=== PATIENT | female | born 1990 | race Caucasian/White ===

== ENCOUNTER 2018-05-25 05:37 | Inpatient (IN) | payer OTHER, SELFPAY ==
[2018-05-25] MEDS ORDERED: Fentanyl 100 MCG/2 ML VIAL ONE ×4 (06:04→13:34)
[2018-05-25 06:10] LABS: BHCG - Serum Negative (NEGATIVE); Pregs Control Background? CLEAR/WHITE (CLR/WHITE); Pregs Control Bar Appear? YES (CONTROL BAR)
[2018-05-25] MEDS ORDERED: Adacel (T-DAP) 0.5 ML VIAL ONE (06:20)
[2018-05-25 06:23] LABS: ALT (SGPT) 255 U/L (8-55); AST (SGOT) 348 U/L (5-34); Albumin 3.9 g/dL (3.5-5.0); Alkaline Phosphatase 112 U/L (40-150); Anion Gap 14 mmol/L (10-20); BUN (Urea Nitrogen) 10 mg/dL (7.0-18.7); Bilirubin, Total 0.4 mg/dL (0.2-1.2); Calc. Creatinine Clearance 0 mL/min (70-130); Calcium 8.3 mg/dL (7.8-10.44); Carbon Dioxide 19 mmol/L (22-29); Chloride 109 mmol/L (98-107); Estimated GFR-MDRD 80; Globulin 2.8 g/dL (2.4-3.5); Glucose 186 mg/dL (70-105); Lipase 56 U/L (8-78); Protein, Total 6.7 g/dL (6.0-8.3); Sodium 137 mmol/L (136-145)
[2018-05-25] MEDS ORDERED: CEFAZOLIN/Water 2 GM/20 ML SYRINGE SLOW IVP SCH (06:30)
[2018-05-25 06:37] LABS: Band 25 % (5-11); Eosinophils 1 % (0-10); Hemoglobin 12.4 g/dL (12.0-16.0); Lymphocytes 16 % (21-51); MDiff Complete? YES; Mean Corpuscular HGB CONC 31.4 g/dL (32.0-36.0); Mean Corpuscular Hemoglobin 24.5 pg (27.0-31.0); Mean Corpuscular Volume 78.1 fL (78.0-98.0); Mean Platelet Volume 8.6 fL (7.4-10.4); Metamyelocyte 1 % (0-0); Neutrophil 57 % (42-75); PLT Morphology Comment Appears Adequate; Platelet Count 371 thou/uL (130-400); RBC Distribution Width 15.6 % (11.5-14.5); Red Blood Cell (RBC) Count 5.08 mill/uL (4.20-5.40); White Blood Cell (WBC) Count 20.3 thou/uL (4.8-10.8)
[2018-05-25] MEDS ORDERED: Ondansetron HCl/PF 4 MG/2 ML Vial ONE ×2 (07:39→14:34)
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
[2018-05-25] MEDS ORDERED: Fentanyl 250 MCG/5 ML VIAL ONE (10:13)
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
[2018-05-25 10:35] LABS: Lactic Acid 2.8 mmol/L (0.5-2.2)
[2018-05-25] MEDS ORDERED: Ondansetron HCl/PF 4 MG/2 ML Vial IVP PRN ×2 (10:59→15:26)
[2018-05-25] MEDS ORDERED: ISOVUE-370 76%-LOCM 1 ML ONE (11:30)
[2018-05-25] MEDS ORDERED: Lidocaine 1% (PF) 30 ML VIAL ONE (12:56)
[2018-05-25] MEDS ORDERED: Ketorolac Tromethamine 30 MG/ML VIAL ONE (13:19)
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
[2018-05-25] MEDS ORDERED: Succinylcholine Chloride 20 MG/ML 10 ml SYRINGE FS ONE (14:34)
[2018-05-25] MEDS ORDERED: PROPOFOL 200 MG/20 ML VIAL ONE (14:34)
[2018-05-25] MEDS ORDERED: Lidocaine 1% PF 5 ML VIAL ONE (14:34)
[2018-05-25] MEDS ORDERED: Dexamethasone 20 MG/5 ML VIAL ONE (14:34)
[2018-05-25] MEDS ORDERED: Glycopyrrolate 0.2 MG/ML 5 ML SYRINGE ONE (14:34)
[2018-05-25] MEDS ORDERED: Ketorolac Tromethamine 30 MG/ML VIAL IVP SCH ×3 (15:26→18:00)
[2018-05-25] MEDS ORDERED: Ondansetron ODT 4 MG TAB PO PRN (15:26)
[2018-05-25] MEDS ORDERED: Rib Fracture Protocol IV SCH (15:26)
[2018-05-25] MEDS ORDERED: Dextrose 50% Abboject 50 ML SYRINGE SLOW IVP PRN (15:26)
[2018-05-25] MEDS ORDERED: hydrALAZINE 20 MG/ML VIAL SLOW IVP PRN (15:26)
[2018-05-25] MEDS ORDERED: Dextrose 5% in Water 1,000 ML IV PRN (15:26)
[2018-05-25] MEDS ORDERED: Cyclobenzaprine 10 MG TAB PO PRN (15:45)
[2018-05-25] MEDS: Ibuprofen 800 MG TAB PO SCH (16:05)
--- NOTE | 2018-05-25 16:45 | RAD ---
CHEST 1 VIEW: Date: 05/25/18 HISTORY: Pneumothorax. COMPARISON: Chest radiograph from same date. FINDINGS: Right thoracostomy tube tip is in the lung apex. Minimal anterior pneumothorax. Atelectasis in both l conner bases. No left side pneumothorax is appreciated. There is a displaced left mid clavicular fracture. IMPRESSION: 1. Minimal anterior pneumothorax remaining after thoracostomy tube placement. 2. Opacities in both lungs may reflect atelectasis or contusions. POS: [facility]
[2018-05-25 16:51] VITALS: BMI 44.4
[2018-05-25] MEDS ORDERED: Acetaminophen 650 MG Suppository PR SCH (18:00)
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
[2018-05-25] MEDS: Gabapentin 300 MG CAP PO SCH ×2 (19:07→19:08)
[2018-05-25] MEDS: Acetaminophen 500 MG TAB PO SCH (19:07)
[2018-05-25] MEDS: Cyclobenzaprine 10 MG TAB PO PRN (20:39)
[2018-05-25] MEDS: Famotidine 20 MG TAB PO SCH (20:40)
[2018-05-25] MEDS: Sodium Chloride 0.9% 1,000 ML IV SCH ×2 (20:40→22:40)
[2018-05-25] MEDS: CEFAZOLIN/Water 2 GM/20 ML SYRINGE SLOW IVP SCH (21:16)
[2018-05-25] MEDS ORDERED: Acetaminophen 500 MG TAB PO SCH (23:59)
[2018-05-26] MEDS: Ibuprofen 800 MG TAB PO SCH ×4 (00:26→18:15)
[2018-05-26] MEDS: Acetaminophen 500 MG TAB PO SCH ×4 (01:32→21:29)
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
[2018-05-26 06:24] LABS: Anion Gap 10 mmol/L (10-20); BUN (Urea Nitrogen) 9 mg/dL (7.0-18.7); Calc. Creatinine Clearance 245 mL/min (70-130); Calcium 7.9 mg/dL (7.8-10.44); Carbon Dioxide 22 mmol/L (22-29); Chloride 113 mmol/L (98-107); Estimated GFR-MDRD Greater than 90; Glucose 96 mg/dL (70-105); Potassium 3.8 mmol/L (3.5-5.1); Sodium 141 mmol/L (136-145)
[2018-05-26] MEDS: CEFAZOLIN/Water 2 GM/20 ML SYRINGE SLOW IVP SCH ×3 (06:29→21:29)
[2018-05-26 06:51] LABS: Band 6 % (5-11); Hemoglobin 8.8 g/dL (12.0-16.0); Hypochromia SLIGHT = 6-15 cells (100X) (0-5/hpf); Lymphocytes 7 % (21-51); MDiff Complete? YES; Mean Corpuscular HGB CONC 31.9 g/dL (32.0-36.0); Mean Corpuscular Volume 78.4 fL (78.0-98.0); Mean Platelet Volume 8.6 fL (7.4-10.4); Monocytes 6 % (0-10); Neutrophil 81 % (42-75); PLT Morphology Comment Appears Adequate; Platelet Count 222 thou/uL (130-400); RBC Distribution Width 15.5 % (11.5-14.5); Red Blood Cell (RBC) Count 3.52 mill/uL (4.20-5.40); White Blood Cell (WBC) Count 13.9 thou/uL (4.8-10.8)
[2018-05-26] MEDS: Gabapentin 300 MG CAP PO SCH ×3 (09:34→21:29)
[2018-05-26] MEDS: Famotidine 20 MG TAB PO SCH ×2 (09:34→21:29)
[2018-05-26] MEDS: Sodium Chloride 0.9% 1,000 ML IV SCH ×2 (09:51→18:14)
--- NOTE | 2018-05-26 10:30 | RAD ---
CHEST ONE VIEW: HISTORY: A 28-year-old female. Follow up rib fracture. FINDINGS: Right-sided chest tube is in place with the tip superiorly and medially. Parenchymal changes in the right lower lobe, evidence for some atelectasis. Comminuted right scapular fracture and marginally d isplaced left clavicle fracture. Mild increased markings in the left chest. No significant pneumoth orax. IMPRESSION: Right chest tube in place with parenchymal changes in the right lower lobe, evidence for right lower lobe atelectasis or contusion. No significant pneumothorax. Displaced left clavicle fracture and co mminuted right scapular fractures. POS: [facility]
[2018-05-26] MEDS ORDERED: Lidocaine 1% PF 5 ML VIAL ONE (13:55)
[2018-05-26] MEDS ORDERED: PROPOFOL 200 MG/20 ML VIAL ONE (13:55)
[2018-05-26] MEDS ORDERED: PHENYLEPHRINE-NS 100 MCG/ML 10 ML SYRINGE ONE (13:55)
[2018-05-26] MEDS ORDERED: CEFAZOLIN/Water 2 GM/20 ML SYRINGE ONE (14:02)
[2018-05-26] MEDS ORDERED: Bacitracin Zinc Ointment 30 gm TUBE ONE (14:07)
[2018-05-26] MEDS ORDERED: Betamet Acet/Betamet Na Ph 30 MG/5 ML VIAL ONE (14:07)
[2018-05-26] MEDS ORDERED: Bupivacaine PF 0.5% 30 ML VIAL ONE (14:07)
[2018-05-26] MEDS ORDERED: Fentanyl 100 MCG/2 ML VIAL ONE ×4 (14:34→19:35)
[2018-05-26] MEDS ORDERED: Sodium Chloride 0.9% 30 ML ONE (15:28)
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
[2018-05-26] MEDS ORDERED: Promethazine HCl 25 MG/ML VIAL SLOW IVP PRN (20:07)
[2018-05-26] MEDS ORDERED: Ondansetron HCl/PF 4 MG/2 ML Vial IVP PRN (20:07)
[2018-05-26] MEDS ORDERED: Promethazine HCl 25 MG/ML VIAL IM PRN (20:07)
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
--- NOTE | 2018-05-26 20:17 | RAD ---
RIGHT ELBOW TWO VIEWS: 05/26/18 HISTORY: Intraoperative films. Nerve anchor. C-arm views show anchor placement over the olecranon region. IMPRESSION: Postoperative changes of the elbow. POS: [facility]
[2018-05-26] MEDS: Senokot S 8.6-50 MG TAB PO SCH (21:29)
[2018-05-26] MEDS ORDERED: Morphine 4 MG/ML VIAL SLOW IVP SCH (23:15)
--- NOTE | 2018-05-26 23:23 | RAD ---
PORTABLE CHEST: 05/26/18 HISTORY: Chest tube placement evaluation. COMPARISON: Earlier exam of the same day. Heart size appears borderline to slightly enlarged. Right sided chest tube remains in place. Bibasila r lung changes are fairly similar to the prior exam. Right chest tube remains unchanged in position. Overall, no interval change since the prior exam. Left clavicle fracture and right scapular fracture again demonstrated. IMPRESSION: Essentially stable exam. POS: [facility]
[2018-05-26] MEDS ORDERED: HYDROcodone/Acetaminophen 5/325 mg Tablet PO PRN (23:50)
[2018-05-26 23:52] LABS: Base Excess (BEa) -1.3 mEq/L (-2.0 to +3.0); CO2 Tension 26.7 mmHg (35.0-45.0); O2 Tension (PaO2) 61.5 mmHg (80.0-100.0); pH, Arterial 7.51 (7.35-7.45)
[2018-05-26 23:53] LABS: Hemoglobin (Hb) 8.7 g/dL (12.0-16.0)
[2018-05-26 23:54] LABS: Analyzer IN Cardio ER; Calcium, Ionized 1.1 mmol/L (1.12-1.30); Puncture Site LBA
[2018-05-26 23:55] LABS: ALV-art Gradient 160.005 (0-20)
[2018-05-26 23:55] LABS: Anion Gap 12 mmol/L (10-20); BUN (Urea Nitrogen) 8 mg/dL (7.0-18.7); Band 4 % (5-11); Calc. Creatinine Clearance 222 mL/min (70-130); Calcium 7.7 mg/dL (7.8-10.44); Carbon Dioxide 21 mmol/L (22-29); Chloride 111 mmol/L (98-107); Estimated GFR-MDRD Greater than 90; Glucose 100 mg/dL (70-105); Hemoglobin 8.6 g/dL (12.0-16.0); Lymphocytes 15 % (21-51); MDiff Complete? YES; Magnesium 1.6 mg/dL (1.6-2.6); Mean Corpuscular HGB CONC 32.7 g/dL (32.0-36.0); Mean Corpuscular Hemoglobin 25.6 pg (27.0-31.0); Mean Corpuscular Volume 78.2 fL (78.0-98.0); Mean Platelet Volume 8.1 fL (7.4-10.4); Monocytes 3 % (0-10); Myelocyte 1 % (0-0); Neutrophil 77 % (42-75); PLT Morphology Comment Appears Adequate; Platelet Count 228 thou/uL (130-400); Potassium 3.7 mmol/L (3.5-5.1); RBC Distribution Width 15.5 % (11.5-14.5); Red Blood Cell (RBC) Count 3.37 mill/uL (4.20-5.40); Sodium 140 mmol/L (136-145); White Blood Cell (WBC) Count 12.4 thou/uL (4.8-10.8)
[2018-05-26 23:58] LABS: Phosphorus 1.6 mg/dL (2.3-4.7)
[2018-05-27] MEDS ORDERED: Magnesium Sulfate 2 GM in Sodium Chloride 0.9% 100 ML IVPB SCH (00:15)
[2018-05-27] MEDS: Ibuprofen 800 MG TAB PO SCH ×4 (00:15→18:08)
[2018-05-27] MEDS: HYDROcodone/Acetaminophen 5/325 mg Tablet PO PRN ×2 (00:16→16:38)
[2018-05-27] MEDS: Sodium Chloride 0.9% 1,000 ML IV SCH ×3 (00:45→19:50)
[2018-05-27] MEDS ORDERED: Potassium Phosphate 30 MMOL, Magnesium Sulfate 2 GM in Sodium Chloride 0.9% 500 ML IVPB SCH (01:00)
[2018-05-27] MEDS ORDERED: Sodium Chloride 0.9% 500 ML IV SCH (02:45)
[2018-05-27] MEDS: Cyclobenzaprine 10 MG TAB PO PRN (03:30)
[2018-05-27 05:28] LABS: Anion Gap 11 mmol/L (10-20); BUN (Urea Nitrogen) 7 mg/dL (7.0-18.7); Calc. Creatinine Clearance 245 mL/min (70-130); Calcium 7.4 mg/dL (7.8-10.44); Carbon Dioxide 22 mmol/L (22-29); Chloride 113 mmol/L (98-107); Estimated GFR-MDRD Greater than 90; Glucose 92 mg/dL (70-105); Phosphorus 3.1 mg/dL (2.3-4.7); Potassium 3.8 mmol/L (3.5-5.1); Sodium 142 mmol/L (136-145)
[2018-05-27 05:36] LABS: #Lymphocytes 1.7 thou/uL (1.20-3.40); #Monocytes 0.6 thou/uL (0.11-0.59); #Neutrophils 9.6 thou/uL (1.40-6.50); %Basophils 0.1 % (0.0-1.0); %Eosinophils 0.3 % (0.0-10.0); %Lymphocytes 14.1 % (21.0-51.0); %Monocytes 5.2 % (0.0-10.0); %Neutrophils 80.3 % (42.0-75.0); Hemoglobin 7.9 g/dL (12.0-16.0); Mean Corpuscular HGB CONC 31.2 g/dL (32.0-36.0); Mean Corpuscular Hemoglobin 24.6 pg (27.0-31.0); Mean Corpuscular Volume 78.9 fL (78.0-98.0); Mean Platelet Volume 8.4 fL (7.4-10.4); Platelet Count 224 thou/uL (130-400); RBC Distribution Width 15.6 % (11.5-14.5)
[2018-05-27] MEDS: CEFAZOLIN/Water 2 GM/20 ML SYRINGE SLOW IVP SCH ×3 (06:19→16:30)
[2018-05-27] MEDS: Gabapentin 300 MG CAP PO SCH ×3 (09:45→20:22)
[2018-05-27] MEDS: Famotidine 20 MG TAB PO SCH ×2 (09:45→20:22)
[2018-05-27] MEDS: Senokot S 8.6-50 MG TAB PO SCH ×2 (09:45→20:22)
[2018-05-27] MEDS: Polyethylene Glycol 3350 17 GM Packet PO SCH (09:45)
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
[2018-05-27 21:02] LABS: Hemoglobin 8.2 g/dL (12.0-16.0)
[2018-05-27] MEDS ORDERED: Sodium Chloride 0.9% 500 ML IVPB SCH (21:30)
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
[2018-05-28] MEDS: CEFAZOLIN/Water 2 GM/20 ML SYRINGE SLOW IVP SCH ×3 (00:24→16:46)
[2018-05-28] MEDS: Ibuprofen 800 MG TAB PO SCH ×4 (00:24→19:02)
[2018-05-28] MEDS: HYDROcodone/Acetaminophen 5/325 mg Tablet PO PRN ×2 (00:25→22:36)
[2018-05-28] MEDS: Cyclobenzaprine 10 MG TAB PO PRN ×2 (02:38→21:14)
[2018-05-28] MEDS: Sodium Chloride 0.9% 1,000 ML IV SCH ×2 (02:53→16:05)
[2018-05-28 05:37] LABS: Anion Gap 12 mmol/L (10-20); BUN (Urea Nitrogen) 7 mg/dL (7.0-18.7); Calc. Creatinine Clearance 278 mL/min (70-130); Calcium 7.8 mg/dL (7.8-10.44); Carbon Dioxide 17 mmol/L (22-29); Chloride 111 mmol/L (98-107); Estimated GFR-MDRD Greater than 90; Glucose 77 mg/dL (70-105); Magnesium 1.9 mg/dL (1.6-2.6); Phosphorus 2.6 mg/dL (2.3-4.7); Potassium 3.7 mmol/L (3.5-5.1); Sodium 136 mmol/L (136-145)
[2018-05-28 06:53] LABS: #Eosinphils 0.3 thou/uL (0.0-0.7); #Lymphocytes 1.2 thou/uL (1.20-3.40); #Monocytes 0.2 thou/uL (0.11-0.59); #Neutrophils 6.5 thou/uL (1.40-6.50); %Basophils 0.2 % (0.0-1.0); %Monocytes 2.9 % (0.0-10.0); %Neutrophils 78.9 % (42.0-75.0); Hemoglobin 7.8 g/dL (12.0-16.0); Mean Corpuscular HGB CONC 31.8 g/dL (32.0-36.0); Mean Corpuscular Hemoglobin 24.6 pg (27.0-31.0); Mean Corpuscular Volume 77.5 fL (78.0-98.0); Mean Platelet Volume 9.1 fL (7.4-10.4); Platelet Count 232 thou/uL (130-400); RBC Distribution Width 15.4 % (11.5-14.5); Red Blood Cell (RBC) Count 3.15 mill/uL (4.20-5.40); White Blood Cell (WBC) Count 12.3 thou/uL (4.8-10.8)
--- NOTE | 2018-05-28 07:04 | PRG ---
DATE OF SERVICE: 05/28/2018 I saw Ms. Varghese in her hospital room this morning. Her chest tube is in, but on water seal. There a re splints on both upper extremities and the scapular fracture will be allowed to heal on its own. Ms. Varghese is wearing her cervical collar and although there is some discomfort, the collar and strict immobilization seems to keep it away. Overnight, her vitals have been stable. Her T-max is 99.5 de grees Fahrenheit. Her blood pressures have been normal. I do not find any neurological deficits. Our plan is still the same. When the chest tube is out and other orthopedic injuries have had their final treatments will get an MRI scan of the craniocervical junction. We will decide after scanning whether halo placement would be better for her than collar immobilization, but she will need at least 2 months of craniocervical immobilization in an attempt to get her occipital condyle avulsion fractu re healed without surgical intervention.
[2018-05-28] MEDS ORDERED: MAGNESIUM SULFATE IVPB SCH (08:30)
[2018-05-28] MEDS ORDERED: POTASSIUM PHOSPHATE IVPB SCH (08:30)
[2018-05-28] MEDS ORDERED: [UNRECOGNIZED DRUG - OTHER] IVPB SCH (08:30)
--- NOTE | 2018-05-28 08:33 | RAD ---
CHEST 1 VIEW: Date: 05/28/18 HISTORY: 28-year-old female with history of follow-up pneumothorax with right chest tube. FINDINGS: There is a right chest tube in place. Small right-sided pneumothorax. Patchy bilateral parenchymal ch anges, including the left mid and lower lung zone and right base. Displaced left clavicle fracture an d comminuted right scapular fractures. IMPRESSION: Right chest tube in place with small right-sided lateral pneumothorax, new \ more prominent. Parenchy mal changes in the left upper lobe, which appear to be somewhat more prominent than on the 05/26/18 s tudy suggesting some developing pneumonitis or subsegmental atelectasis. Bibasilar pulmonary and pare nchymal changes appear overall stable. Continue short-term follow-up for clearing or stability. POS: [facility]
[2018-05-28] MEDS: Famotidine 20 MG TAB PO SCH ×2 (08:38→21:16)
[2018-05-28] MEDS: Gabapentin 300 MG CAP PO SCH ×3 (08:39→21:15)
[2018-05-28] MEDS: Ascorbic Acid 500 mg Chewable Tablet PO SCH ×2 (08:39→21:17)
[2018-05-28] MEDS: Enoxaparin Sodium 40 MG/0.4 ML SYRINGE SC SCH (08:39)
[2018-05-28] MEDS: Ferrous Sulfate 325 MG TAB PO SCH ×2 (08:39→16:46)
[2018-05-28] MEDS: Senokot S 8.6-50 MG TAB PO SCH ×2 (08:39→21:16)
[2018-05-28] MEDS: Polyethylene Glycol 3350 17 GM Packet PO SCH (08:40)
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
--- NOTE | 2018-05-28 13:54 | OP ---
DATE OF SURGERY: 05/26/2018 PREOPERATIVE DIAGNOSES: 1. Wound, 8 cm medial forearm. 2. Ulnar nerve laceration with gap 2 cm, despite neuroplasty. 3. Capsular tear: A. The medial 50%, medial and anteromedial. B. Open elbow joint with visible partial olecranon coronoid junction comminuted fracture. C. Olecranon anteromedial coronoid fracture. D. Triceps from avulsion 50% off the bone and olecranon. E. Flexor carpi radialis ulnaris, flexor digitorium superficialis rupture. F. Ulnar collateral ligament rupture. G. Instability of elbow. PROCEDURES PERFORMED: 1. C-arm supervision. 2. Right elbow capsular repair medial and anteromedial. 3. Flexor digitorum superficialis. 4. Wound debridement. 5. Wound closure 8 cm. 6. Debridement of open elbow joint. 7. Flexor carpi ulnaris repair. 8. Right triceps reconstruction. 9. Right ulnar collateral ligament repair. 10. Ulnar nerve transposition/neuroplasty. 11. Right ulnar nerve microscopic technique, sural nerve grafting x5 fascicles, each one approximate ly 2 cm. 12. Application of the Integra nerve conduit sleeve 7 mm x 4 cm. INDICATION: The patient returns to operating room because of the elbow damage seen with first debrid ement approximately 36 hours prior to this. She was afebrile in the intensive care unit. She did no t have a pulse deficit. The patient had the limb prepped and draped. Time out was done appropriately. The incision was exte nded 6 cm proximal and 3 cm distal to expose the tight area and underwent an immediate neuroplasty in median nerve and ulnar nerve and we could see even with the elbow at full extension to -30 from full extension, the injury did not touch bone, were approximately 1 cm away from each other, so, we debri ded under microscope, the damaged area approximately 4 mm on the proximal side and two on the distal leaving us with a gap of approximately 1.5 cm cystic duct, which went to 2 cm with full flexion. Jackelyn s 2 cm intrafascicular nerve graft to be needed with the five fascicles visualized. We then immediately went into debridement. First the joint was irrigated, debrided using especially bone on the olecranon's medial edge with a curette, tenotomy scissors, [place] blade, and irrigation. The technique was excisional and there was an occluded bone. There was no gross contamination or inf ection seen. The same four steps were used for all of the debridements except now, once the bone was done in the joint, remained of all soft tissue. There was no gross infection. Minimal contaminatio n seen except for one particle was easily removed subcutaneously. We then visualized the triceps, one medial portion was torn, the anterior oblique portion, medial col lateral ligament and the posterior medial collateral ligament was intact, but torn and mid with underlying capsule torn up to level of the coracoid. There was still some capsule on the superior a nd most anterior corner of the coracoid. Capsule still attached to both the humerus and the olecranon. After we finished the debridement desc ribed above, the first step was repair of the capsule with the elbow reduced using an interrupted Pro dwayne, 3-0 suture this is [id number]. Next, repaired the ulnar collateral ligament both aspects using a Lisa type suture with a #1 Ethibond on OS-4 needle, which gave excellent field and was ove r reduced with the elbow in varus approximately 15 degrees. There was no instability after this poin t. We continued our repair using one anchor to help hold the capsule in place. Then, we made a trou gh for the triceps in parallel to the 50% that was still in place and use two anchors one at G2 and o ne at Mitek mini to place the tendon back in a trough and this was done with a Lisa-type weave tie d onto itself. This gave excellent stability with elbow and full range of motion 0-140 degrees passi vely. We then repaired the fascia back to fascia, where the flexor digitorum profundus, superficialis, flex or carpal radialis, flexor carpi ulnaris were all lacerated. We then noticed that the distal nerve c ut and one of the nerve branches to the flexor carpi radialis and was still intact. But now, we turn ed our attention from the stability repairs and debridement to the ulnar nerve. We went microscope a gain measured the nerve gap, and decided we would need either 4 or 5 fascicles, so each one will be a pproximately 2.5 cm, so we would need a 12-14 mm nerve graft. The tourniquet was deflated here, bulk y dressing was applied to protect the area and we turn attention to the leg. The leg was now prepped and draped with a thigh, tourniquet in place just above the knee. It was well padded. The limb was exsanguinated with a tourniquet nonsterile limb, and the pressure applied at 300 mmHg pressure. I identified the base of the fifth metatarsal with one fingerbreadth over dorsally and then made a zi gzag incision identified, the sural nerve adjusted that began to make branches. This wound was now 2 .5 cm followed that back. With the use of tunneling techniques to the level of the lateral malleolus , we will follow the back and found the nerve and then using a skipped of 2 cm area and another 1.5 c m incision to visualize the sural nerve. We from the vasculature, isolated, and released i t distally, slowly dissected back proximally until we had reached the point of maximum visualization. I made a cut here with tenotomy scissors, now had a nerve be removed off gently out of the nerve pl aced a moist sponge. Then, we did release the tourniquet. We closed these wounds with interrupted r unning 4-0 Monocryl, then closed the skin with Steri-Strips and Mastisol. Bulky dressing was applied including dry Adaptic, 4 x 4s, Kerlix, and 2 Hima wraps. We turned our attention now to the remainin g area. Under microscope we identified five fascicles on either side, use the vasculature to align t hem and the fact that one of the cuts was nerve fascicles, was a 5 mm long than the other fascicles o n the distal end and of course one fascicles was 5 mm to 6 mm shorter of the other gave us alignment. We then used 9-0 Nurolon for closure of all, but one fascicle which using 8-0. Once this was done, we had excellent tension of the nerve when the elbow was fully extended and flexed to 130 degrees. There was no migration that we had placed into the subcutaneous transposition and neuroplasty positio n. All sutures were cut. We then placed an Integra nerve conduit sleeve, which was [address] wi th 3 Prolene sutures to hold it in place, where it covered the graft site as well as the anastomosis site. Tourniquet was now highly deflated and hemostasis was complete. We placed a drain, small Hemovac wit h 10 holes inside the wound and not showing outside the skin, close subcutaneous tissue with interrup nereida 4-0 Monocryl, and then reapproximated the epidermis with 3-0 nylon interrupted mattress pattern. Bulky dressing was applied along the splint in a -4 to 5 degrees of flexion. We will evaluate the p atient in clinic in 3-4 days.
[2018-05-29] MEDS: CEFAZOLIN/Water 2 GM/20 ML SYRINGE SLOW IVP SCH ×4 (00:19→23:36)
[2018-05-29] MEDS: Ibuprofen 800 MG TAB PO SCH ×5 (00:19→23:36)
[2018-05-29] MEDS ORDERED: Melatonin 3 MG TAB PO PRN (01:39)
[2018-05-29] MEDS: HYDROcodone/Acetaminophen 5/325 mg Tablet PO PRN ×3 (05:53→14:57)
--- NOTE | 2018-05-29 07:18 | PRG ---
DATE OF SERVICE: 05/29/2018 I saw Ms. Lyndsey Varghese in her hospital room this morning. Yesterday, she had her chest tube remov ed, that makes her feel a bit better. She continues to have pain from orthopedic injuries in the ext remities. She continues to deny any neck pain at all. There is no pain at the base of her skull. W ith the collar she has her neck completely mobilized and she is doing her best not to move it. On examination, I do not find any new neurological deficits. There is some ulnar nerve deficits in t he right hand as expected. A fine cut MRI scan dedicated to the craniocervical junction to determine whether other ligamentous s tructures connecting the occiput to C1 and C2 have been stretched, torn or injured. If there is a un ilateral ____ or ligament, tiny avulsion and the bone is still in continuity with the skull as it is at one end of the bone fragment, then I am optimistic that a rigid external orthosis without halo ves t could allow for healing. If other ligaments are involved then a halo vest application may be neces navin this week.
[2018-05-29] MEDS: Senokot 8.6 MG TAB PO SCH (08:03)
[2018-05-29] MEDS: Ferrous Sulfate 325 MG TAB PO SCH ×2 (08:44→17:22)
[2018-05-29] MEDS: Enoxaparin Sodium 40 MG/0.4 ML SYRINGE SC SCH (08:44)
[2018-05-29] MEDS: Senokot S 8.6-50 MG TAB PO SCH ×2 (08:44→21:03)
[2018-05-29] MEDS: Famotidine 20 MG TAB PO SCH ×2 (08:44→21:03)
[2018-05-29] MEDS: Gabapentin 300 MG CAP PO SCH ×3 (08:44→21:03)
[2018-05-29] MEDS: Docusate 100 MG CAP PO SCH (08:45)
[2018-05-29] MEDS: Ascorbic Acid 500 mg Chewable Tablet PO SCH ×2 (08:45→21:03)
[2018-05-29] MEDS: Polyethylene Glycol 3350 17 GM Packet PO SCH (08:45)
--- NOTE | 2018-05-29 09:55 | RAD ---
CHEST ONE VIEW: HISTORY: Status post chest tube removal. COMPARISON: 05/28/2018 FINDINGS: Previously noted right-sided pneumothorax is not appreciated. Interval removal of right-sided chest tube. Persistent opacification in the lung parenchyma with focal opacity in the right lower lobe and left perihilar region. Left clavicle fracture is once again demonstrated. IMPRESSION: Interval removal of right-sided chest tube. No evidence of right-sided pneumothorax. POS: VEDA
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
[2018-05-29] MEDS ORDERED: Lorazepam 2 MG/ML VIAL SLOW IVP SCH (12:15)
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
[2018-05-29] MEDS ORDERED: traMADol HCl 50 MG TAB PO PRN (16:20)
[2018-05-29] MEDS ORDERED: Potassium Chloride 20 MEQ TAB PO SCH (16:30)
[2018-05-29] MEDS ORDERED: Magnesium Sulfate 3 GM in Sodium Chloride 0.9% 100 ML IVPB SCH (16:30)
[2018-05-29] MEDS ORDERED: traMADol HCl 50 MG TAB PO SCH (16:30)
[2018-05-29] MEDS ORDERED: Acetaminophen 500 MG TAB PO SCH (16:30)
[2018-05-29] MEDS ORDERED: Triple Antibiotic Oint 1 GM Packet TOP SCH (17:30)
[2018-05-29] MEDS ORDERED: HYDROcodone/Acetaminophen 5/325 mg Tablet PO PRN (17:34)
[2018-05-29] MEDS ORDERED: Acetaminophen 325 MG TAB PO SCH (17:45)
[2018-05-29] MEDS ORDERED: HYDROcodone/Acetaminophen 5/325 mg Tablet PO SCH (17:45)
[2018-05-29] MEDS: Cyclobenzaprine 10 MG TAB PO PRN (21:03)
[2018-05-29] MEDS: HYDROcodone/Acetaminophen 5/325 mg Tablet PO SCH (21:23)
[2018-05-30 04:50] LABS: #Eosinphils 0.4 thou/uL (0.0-0.7); #Lymphocytes 1.7 thou/uL (1.20-3.40); #Monocytes 0.6 thou/uL (0.11-0.59); #Neutrophils 5.2 thou/uL (1.40-6.50); %Basophils 0.6 % (0.0-1.0); %Eosinophils 4.8 % (0.0-10.0); %Lymphocytes 21.5 % (21.0-51.0); %Neutrophils 66.1 % (42.0-75.0); Hemoglobin 8.4 g/dL (12.0-16.0); Mean Corpuscular HGB CONC 33.2 g/dL (32.0-36.0); Mean Corpuscular Hemoglobin 25.6 pg (27.0-31.0); Mean Corpuscular Volume 77.1 fL (78.0-98.0); Platelet Count 256 thou/uL (130-400); RBC Distribution Width 15.5 % (11.5-14.5); White Blood Cell (WBC) Count 7.8 thou/uL (4.8-10.8)
[2018-05-30 05:00] LABS: Anion Gap 15 mmol/L (10-20); BUN (Urea Nitrogen) 11 mg/dL (7.0-18.7); Calc. Creatinine Clearance 278 mL/min (70-130); Calcium 8.4 mg/dL (7.8-10.44); Carbon Dioxide 14 mmol/L (22-29); Chloride 111 mmol/L (98-107); Estimated GFR-MDRD Greater than 90; Glucose 79 mg/dL (70-105); Magnesium 1.9 mg/dL (1.6-2.6); Phosphorus 3.8 mg/dL (2.3-4.7); Potassium 4.2 mmol/L (3.5-5.1); Sodium 136 mmol/L (136-145)
[2018-05-30] MEDS: HYDROcodone/Acetaminophen 5/325 mg Tablet PO SCH ×4 (05:07→20:38)
[2018-05-30] MEDS: Ibuprofen 800 MG TAB PO SCH ×3 (05:07→18:39)
--- NOTE | 2018-05-30 08:50 | PRG ---
DATE OF SERVICE: 05/30/2018 I reviewed the MRI involving the craniocervical junction on Lyndsey Varghese. It demonstrates a small amount of edema in the right medial occipital portion of the condyle consistent with a condylar frac ture. There is no diastasis of the atlanto-occipital nor of the atlantoaxial joints. I would recomm end a cervical collar for this patient with a follow up in a couple of weeks with a cervical AP, late ral and open mouth odontoid spine x-rays. The collar should be worn at all times, likely for duratio n of 3 months.
[2018-05-30] MEDS: Ferrous Sulfate 325 MG TAB PO SCH ×2 (08:56→16:18)
[2018-05-30] MEDS: Triple Antibiotic Oint 1 GM Packet TOP SCH (08:56)
[2018-05-30] MEDS: Gabapentin 300 MG CAP PO SCH ×3 (08:56→20:39)
[2018-05-30] MEDS: Famotidine 20 MG TAB PO SCH ×2 (08:56→20:39)
[2018-05-30] MEDS: CEFAZOLIN/Water 2 GM/20 ML SYRINGE SLOW IVP SCH ×2 (08:56→16:18)
[2018-05-30] MEDS: Ascorbic Acid 500 mg Chewable Tablet PO SCH ×2 (08:56→20:39)
[2018-05-30] MEDS: Enoxaparin Sodium 40 MG/0.4 ML SYRINGE SC SCH (08:56)
[2018-05-30] MEDS: Docusate 100 MG CAP PO SCH (09:03)
[2018-05-30] MEDS: Senokot S 8.6-50 MG TAB PO SCH ×2 (09:04→20:39)
[2018-05-30] MEDS: Senokot 8.6 MG TAB PO SCH (09:04)
[2018-05-30] MEDS: Polyethylene Glycol 3350 17 GM Packet PO SCH (09:04)
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
[2018-05-31] MEDS: Ibuprofen 800 MG TAB PO SCH ×4 (01:41→17:38)
[2018-05-31] MEDS: CEFAZOLIN/Water 2 GM/20 ML SYRINGE SLOW IVP SCH ×3 (01:41→16:44)
[2018-05-31] MEDS: HYDROcodone/Acetaminophen 5/325 mg Tablet PO SCH ×4 (03:31→22:38)
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
[2018-05-31] MEDS: Famotidine 20 MG TAB PO SCH ×2 (08:52→20:33)
[2018-05-31] MEDS: Gabapentin 300 MG CAP PO SCH ×3 (08:52→20:33)
[2018-05-31] MEDS: Ferrous Sulfate 325 MG TAB PO SCH ×2 (08:52→17:38)
[2018-05-31] MEDS: Triple Antibiotic Oint 1 GM Packet TOP SCH (08:52)
[2018-05-31] MEDS: Enoxaparin Sodium 40 MG/0.4 ML SYRINGE SC SCH (08:53)
[2018-05-31] MEDS: Ascorbic Acid 500 mg Chewable Tablet PO SCH ×2 (08:56→20:33)
[2018-05-31] MEDS: Senokot 8.6 MG TAB PO SCH (08:57)
[2018-05-31] MEDS: Polyethylene Glycol 3350 17 GM Packet PO SCH (08:57)
[2018-05-31] MEDS: Docusate 100 MG CAP PO SCH (08:57)
[2018-05-31] MEDS: Senokot S 8.6-50 MG TAB PO SCH ×2 (08:57→20:33)
[2018-05-31] MEDS: Cyclobenzaprine 10 MG TAB PO PRN (11:19)
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
[2018-05-31] MEDS: HYDROcodone/Acetaminophen 5/325 mg Tablet PO PRN (13:06)
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
[2018-06-01] MEDS: Ibuprofen 800 MG TAB PO SCH ×4 (00:36→18:18)
[2018-06-01] MEDS: CEFAZOLIN/Water 2 GM/20 ML SYRINGE SLOW IVP SCH ×2 (00:37→11:40)
[2018-06-01] MEDS: HYDROcodone/Acetaminophen 5/325 mg Tablet PO SCH ×4 (04:17→21:51)
[2018-06-01] MEDS: Senokot 8.6 MG TAB PO SCH (09:59)
[2018-06-01] MEDS: Docusate 100 MG CAP PO SCH (10:00)
[2018-06-01] MEDS: Gabapentin 300 MG CAP PO SCH ×3 (10:00→20:51)
[2018-06-01] MEDS: Triple Antibiotic Oint 1 GM Packet TOP SCH (10:01)
[2018-06-01] MEDS: Ferrous Sulfate 325 MG TAB PO SCH ×2 (10:02→18:18)
[2018-06-01] MEDS: Ascorbic Acid 500 mg Chewable Tablet PO SCH ×2 (10:02→20:51)
[2018-06-01] MEDS: Senokot S 8.6-50 MG TAB PO SCH ×2 (10:02→20:51)
[2018-06-01] MEDS: Enoxaparin Sodium 40 MG/0.4 ML SYRINGE SC SCH (10:02)
[2018-06-01] MEDS: Polyethylene Glycol 3350 17 GM Packet PO SCH (10:07)
[2018-06-01] MEDS: Famotidine 20 MG TAB PO SCH ×2 (10:08→20:51)
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
[2018-06-02] MEDS: Ibuprofen 800 MG TAB PO SCH ×5 (00:34→23:28)
[2018-06-02] MEDS: HYDROcodone/Acetaminophen 5/325 mg Tablet PO SCH ×4 (04:27→22:05)
[2018-06-02] MEDS: Ascorbic Acid 500 mg Chewable Tablet PO SCH ×2 (10:13→20:46)
[2018-06-02] MEDS: Gabapentin 300 MG CAP PO SCH ×3 (10:13→20:46)
[2018-06-02] MEDS: Triple Antibiotic Oint 1 GM Packet TOP SCH (10:13)
[2018-06-02] MEDS: Enoxaparin Sodium 40 MG/0.4 ML SYRINGE SC SCH (10:14)
[2018-06-02] MEDS: Famotidine 20 MG TAB PO SCH ×2 (10:14→20:46)
[2018-06-02] MEDS: Senokot 8.6 MG TAB PO SCH (10:14)
[2018-06-02] MEDS: Docusate 100 MG CAP PO SCH (10:14)
[2018-06-02] MEDS: Ferrous Sulfate 325 MG TAB PO SCH ×2 (10:14→17:04)
[2018-06-02] MEDS: Polyethylene Glycol 3350 17 GM Packet PO SCH (10:15)
[2018-06-02] MEDS: Senokot S 8.6-50 MG TAB PO SCH ×2 (10:15→20:47)
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
[2018-06-03] MEDS: Ibuprofen 800 MG TAB PO SCH ×4 (05:26→23:30)
[2018-06-03] MEDS: HYDROcodone/Acetaminophen 5/325 mg Tablet PO SCH ×4 (05:26→21:50)
[2018-06-03] MEDS: Polyethylene Glycol 3350 17 GM Packet PO SCH (07:39)
[2018-06-03] MEDS: Famotidine 20 MG TAB PO SCH ×2 (07:39→20:27)
[2018-06-03] MEDS: Senokot 8.6 MG TAB PO SCH (07:39)
[2018-06-03] MEDS: Docusate 100 MG CAP PO SCH (07:40)
[2018-06-03] MEDS: Senokot S 8.6-50 MG TAB PO SCH ×2 (07:40→20:27)
[2018-06-03] MEDS: Ascorbic Acid 500 mg Chewable Tablet PO SCH ×2 (07:40→20:26)
[2018-06-03] MEDS: Gabapentin 300 MG CAP PO SCH ×3 (07:40→20:27)
[2018-06-03] MEDS: Ferrous Sulfate 325 MG TAB PO SCH ×2 (07:40→18:12)
[2018-06-03] MEDS: Enoxaparin Sodium 40 MG/0.4 ML SYRINGE SC SCH (07:40)
[2018-06-03] MEDS: Triple Antibiotic Oint 1 GM Packet TOP SCH (07:41)
[2018-06-03] MEDS: Cyclobenzaprine 10 MG TAB PO PRN (08:42)
[2018-06-03] MEDS: HYDROcodone/Acetaminophen 5/325 mg Tablet PO PRN (08:43)
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
[2018-06-03] MEDS: Scopolamine 1.5 mg/72 hour Patch TD SCH (12:21)
[2018-06-04] MEDS: HYDROcodone/Acetaminophen 5/325 mg Tablet PO SCH ×4 (04:54→21:58)
[2018-06-04] MEDS: Ibuprofen 800 MG TAB PO SCH ×4 (05:00→23:49)
[2018-06-04] MEDS: Polyethylene Glycol 3350 17 GM Packet PO SCH (09:52)
[2018-06-04] MEDS: Docusate 100 MG CAP PO SCH (09:52)
[2018-06-04] MEDS: Ferrous Sulfate 325 MG TAB PO SCH ×2 (09:52→17:51)
[2018-06-04] MEDS: Famotidine 20 MG TAB PO SCH ×2 (09:53→20:54)
[2018-06-04] MEDS: Enoxaparin Sodium 40 MG/0.4 ML SYRINGE SC SCH (09:53)
[2018-06-04] MEDS: Gabapentin 300 MG CAP PO SCH ×3 (09:53→20:54)
[2018-06-04] MEDS: Ascorbic Acid 500 mg Chewable Tablet PO SCH ×2 (09:53→20:54)
[2018-06-04] MEDS: Senokot S 8.6-50 MG TAB PO SCH ×2 (09:53→20:54)
[2018-06-04] MEDS: Triple Antibiotic Oint 1 GM Packet TOP SCH (09:54)
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
[2018-06-05] MEDS: HYDROcodone/Acetaminophen 5/325 mg Tablet PO SCH ×4 (04:20→22:32)
[2018-06-05] MEDS: Ibuprofen 800 MG TAB PO SCH ×3 (05:47→18:34)
[2018-06-05] MEDS ORDERED: Bisacodyl 10 MG SUPP PR PRN (08:12)
[2018-06-05] MEDS: Famotidine 20 MG TAB PO SCH ×2 (09:53→21:05)
[2018-06-05] MEDS: Docusate 100 MG CAP PO SCH (09:53)
[2018-06-05] MEDS: Ascorbic Acid 500 mg Chewable Tablet PO SCH ×2 (09:54→21:05)
[2018-06-05] MEDS: Enoxaparin Sodium 40 MG/0.4 ML SYRINGE SC SCH (09:54)
[2018-06-05] MEDS: Senokot S 8.6-50 MG TAB PO SCH ×2 (09:54→21:05)
[2018-06-05] MEDS: Ferrous Sulfate 325 MG TAB PO SCH ×2 (09:54→16:47)
[2018-06-05] MEDS: Gabapentin 300 MG CAP PO SCH ×3 (09:54→21:05)
[2018-06-05] MEDS: Polyethylene Glycol 3350 17 GM Packet PO SCH (09:54)
[2018-06-05] MEDS: Triple Antibiotic Oint 1 GM Packet TOP SCH (10:00)
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
[2018-06-06] MEDS: Ibuprofen 800 MG TAB PO SCH ×4 (00:17→16:06)
[2018-06-06] MEDS: HYDROcodone/Acetaminophen 5/325 mg Tablet PO SCH ×4 (04:35→21:53)
[2018-06-06] MEDS: Enoxaparin Sodium 40 MG/0.4 ML SYRINGE SC SCH (08:41)
[2018-06-06] MEDS: Ascorbic Acid 500 mg Chewable Tablet PO SCH ×2 (08:41→21:53)
[2018-06-06] MEDS: Docusate 100 MG CAP PO SCH (08:41)
[2018-06-06] MEDS: Famotidine 20 MG TAB PO SCH ×2 (08:41→21:53)
[2018-06-06] MEDS: Ferrous Sulfate 325 MG TAB PO SCH ×2 (08:41→16:06)
[2018-06-06] MEDS: Gabapentin 300 MG CAP PO SCH ×3 (08:41→21:53)
[2018-06-06] MEDS: Senokot S 8.6-50 MG TAB PO SCH ×2 (08:41→21:53)
[2018-06-06] MEDS: Polyethylene Glycol 3350 17 GM Packet PO SCH (08:43)
[2018-06-06] MEDS: Triple Antibiotic Oint 1 GM Packet TOP SCH (08:43)
[2018-06-06] MEDS: Scopolamine 1.5 mg/72 hour Patch TD SCH (13:23)
[2018-06-07] MEDS: Ibuprofen 800 MG TAB PO SCH ×5 (00:12→22:44)
[2018-06-07] MEDS: HYDROcodone/Acetaminophen 5/325 mg Tablet PO SCH ×4 (03:56→22:16)
[2018-06-07 04:30] LABS: #Basophils 0.1 thou/uL (0.0-0.2); #Eosinphils 0.2 thou/uL (0.0-0.7); #Lymphocytes 2.2 thou/uL (1.20-3.40); #Monocytes 0.5 thou/uL (0.11-0.59); #Neutrophils 6.3 thou/uL (1.40-6.50); %Basophils 0.8 % (0.0-1.0); %Eosinophils 2.3 % (0.0-10.0); %Lymphocytes 23.7 % (21.0-51.0); %Monocytes 5.2 % (0.0-10.0); Hemoglobin 9.2 g/dL (12.0-16.0); Mean Corpuscular Hemoglobin 25.7 pg (27.0-31.0); Mean Corpuscular Volume 80.4 fL (78.0-98.0); Platelet Count 411 thou/uL (130-400); RBC Distribution Width 17.4 % (11.5-14.5); Red Blood Cell (RBC) Count 3.57 mill/uL (4.20-5.40); White Blood Cell (WBC) Count 9.2 thou/uL (4.8-10.8)
[2018-06-07 04:56] LABS: Anion Gap 14 mmol/L (10-20); BUN (Urea Nitrogen) 18 mg/dL (7.0-18.7); Calc. Creatinine Clearance 233 mL/min (70-130); Calcium 9.1 mg/dL (7.8-10.44); Carbon Dioxide 23 mmol/L (22-29); Chloride 110 mmol/L (98-107); Estimated GFR-MDRD Greater than 90; Glucose 107 mg/dL (70-105); Magnesium 2.1 mg/dL (1.6-2.6); Phosphorus 5.4 mg/dL (2.3-4.7); Potassium 3.7 mmol/L (3.5-5.1); Sodium 143 mmol/L (136-145)
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
[2018-06-07] MEDS: Polyethylene Glycol 3350 17 GM Packet PO SCH (08:51)
[2018-06-07] MEDS: Senokot S 8.6-50 MG TAB PO SCH ×2 (08:52→22:00)
[2018-06-07] MEDS: Enoxaparin Sodium 40 MG/0.4 ML SYRINGE SC SCH (08:52)
[2018-06-07] MEDS: Famotidine 20 MG TAB PO SCH ×2 (08:52→20:43)
[2018-06-07] MEDS: Docusate 100 MG CAP PO SCH (08:52)
[2018-06-07] MEDS: Ferrous Sulfate 325 MG TAB PO SCH ×2 (08:52→18:15)
[2018-06-07] MEDS: Gabapentin 300 MG CAP PO SCH ×3 (08:52→20:44)
[2018-06-07] MEDS: Ascorbic Acid 500 mg Chewable Tablet PO SCH ×2 (08:53→20:44)
[2018-06-07] MEDS: Triple Antibiotic Oint 1 GM Packet TOP SCH (08:53)
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
[2018-06-07] MEDS: HYDROcodone/Acetaminophen 5/325 mg Tablet PO PRN (14:33)
[2018-06-08] MEDS: Ibuprofen 800 MG TAB PO SCH ×2 (05:05→14:10)
[2018-06-08] MEDS: HYDROcodone/Acetaminophen 5/325 mg Tablet PO SCH (05:05)
[2018-06-08] MEDS ORDERED: HYDROcodone/Acetaminophen 5/325 mg Tablet PO PRN (06:40)
[2018-06-08 08:22] VITALS: TEMP 98.1
[2018-06-08] MEDS: Polyethylene Glycol 3350 17 GM Packet PO SCH (09:46)
[2018-06-08] MEDS: Ascorbic Acid 500 mg Chewable Tablet PO SCH (09:47)
[2018-06-08] MEDS: Senokot S 8.6-50 MG TAB PO SCH (09:47)
[2018-06-08] MEDS: Ferrous Sulfate 325 MG TAB PO SCH (09:47)
[2018-06-08] MEDS: Famotidine 20 MG TAB PO SCH (09:48)
[2018-06-08] MEDS: Docusate 100 MG CAP PO SCH (09:49)
[2018-06-08] MEDS: Gabapentin 300 MG CAP PO SCH ×2 (09:49→14:11)
[2018-06-08] MEDS: Triple Antibiotic Oint 1 GM Packet TOP SCH (09:49)
[2018-06-08] MEDS ORDERED: HYDROcodone/Acetaminophen 5/325 mg Tablet PO SCH (10:00)
[2018-06-08] MEDS: Enoxaparin Sodium 40 MG/0.4 ML SYRINGE SC SCH (10:14)
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
[2018-06-08 12:03] VITALS: BP 110/69
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
== END 2018-06-08 15:00 | DRG 958 ==
LOC: ERS 05:37 → EEVIPCON 05:37 → ERS 08:46 → SDC 08:52 → SURG B 15:12 → SURG A 06-01 16:01 → SURG B 06-01 16:01 → SURG A 06-01 16:03 → SURG B 06-01 16:06
PROVIDERS: ADMIT Specialist; ATTEND Orthopaedic Surgery
PROC: 0W9900Z Drainage of Right Pleural Cavity with Drainage Device, Open Approach (ICD-10-PCS; 2018-05-25)
PROC: 0JBG0ZZ Excision of Right Lower Arm Subcutaneous Tissue and Fascia, Open Approach (ICD-10-PCS; 2018-05-25)
PROC: 0RCL0ZZ Extirpation of Matter from Right Elbow Joint, Open Approach (ICD-10-PCS; 2018-05-25)
PROC: 0PSQXZZ Reposition Left Metacarpal, External Approach (ICD-10-PCS; 2018-05-25)
PROC: 0PSVXZZ Reposition Left Finger Phalanx, External Approach (ICD-10-PCS; 2018-05-25)
PROC: 0RQL0ZZ Repair Right Elbow Joint, Open Approach (ICD-10-PCS; principal; 2018-05-26)
PROC: 0PBK0ZZ Excision of Right Ulna, Open Approach (ICD-10-PCS; 2018-05-26)
PROC: 0RBL0ZZ Excision of Right Elbow Joint, Open Approach (ICD-10-PCS; 2018-05-26)
PROC: 0MQ30ZZ Repair Right Elbow Bursa and Ligament, Open Approach (ICD-10-PCS; 2018-05-26)
PROC: 01Q40ZZ Repair Ulnar Nerve, Open Approach (ICD-10-PCS; 2018-05-26)
PROC: 01U40JZ Supplement Ulnar Nerve with Synthetic Substitute, Open Approach (ICD-10-PCS; 2018-05-26)
PROC: 0HRDXK3 Replacement of Right Lower Arm Skin with Nonautologous Tissue Substitute, Full Thickness, External Approach (ICD-10-PCS; 2018-05-26)
DX: S54.01XA Injury of ulnar nerve at forearm level, right arm, initial encounter (principal); S32.511A Fracture of superior rim of right pubis, initial encounter for closed fracture; S22.41XA Multiple fractures of ribs, right side, initial encounter for closed fracture; S27.0XXA Traumatic pneumothorax, initial encounter; D62 Acute posthemorrhagic anemia; V89.2XXA Person injured in unspecified motor-vehicle accident, traffic, initial encounter; Y92.9 Unspecified place or not applicable; R40.2412 Glasgow coma scale score 13-15, at arrival to emergency department; S42.101A Fracture of unspecified part of scapula, right shoulder, initial encounter for closed fracture; S60.212A Contusion of left wrist, initial encounter; S52.021A Displaced fracture of olecranon process without intraarticular extension of right ulna, initial encounter for closed fracture; S51.801A Unspecified open wound of right forearm, initial encounter; S53.401A Unspecified sprain of right elbow, initial encounter; S42.002A Fracture of unspecified part of left clavicle, initial encounter for closed fracture; S62.305A Unspecified fracture of fourth metacarpal bone, left hand, initial encounter for closed fracture; S62.617A Displaced fracture of proximal phalanx of left little finger, initial encounter for closed fracture; E87.5 Hyperkalemia; E83.39 Other disorders of phosphorus metabolism; E83.42 Hypomagnesemia
CPT/HCPCS: 36415; 70450; 70551; 71045; 71260; 72125; 72170; 74177; 76000; 80048; 80053; 82805; 83605; 83690; 83735; 84100; 84703; 85025; 90471; 90715; 94640; 96361; 96374; 96375; A4216; C1713; G0390; G8978-GP-CL; G8979-GP-CJ; G8987-GO-CK; G8988-GO-CJ; J0702; J1100; J1650; J1885; J2001; J2060; J2270; J2405; J2704; J3010; J3475; J3490; J7050; J7620; L1930; S0020

== ENCOUNTER 2018-06-21 09:51 | Outpatient (CLI) | payer OTHER, SELFPAY ==
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
== END 2018-06-21 09:52 | disposition home or self-care (01) ==
LOC: RAD 09:51
PROVIDERS: ATTEND Physician Assistant
DX: S22.31XD Fracture of one rib, right side, subsequent encounter for fracture with routine healing (principal); J93.9 Pneumothorax, unspecified; S42.022A Displaced fracture of shaft of left clavicle, initial encounter for closed fracture; J98.6 Disorders of diaphragm
CPT/HCPCS: 71046

== ENCOUNTER 2018-07-13 11:33 | Outpatient (CLI) | payer OTHER, SELFPAY ==
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
== END 2018-07-13 11:34 | disposition home or self-care (01) ==
LOC: RAD 11:33
PROVIDERS: ATTEND Physician Assistant
DX: S02.11 Fracture of occiput (principal)
CPT/HCPCS: 72040

== ENCOUNTER 2018-08-28 13:29 | Outpatient (CLI) | payer SELFPAY ==
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
== END 2018-08-28 13:30 | disposition home or self-care (01) ==
LOC: CT 13:29
PROVIDERS: ATTEND Neurological Surgery
DX: S02.11 Fracture of occiput (principal)
CPT/HCPCS: 72125

== ENCOUNTER 2018-09-11 12:32 | Outpatient (CLI) | payer OTHER ==
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
== END 2018-09-11 12:33 | disposition home or self-care (01) ==
LOC: BICRAD 12:32
PROVIDERS: ATTEND Internal Medicine
DX: Z02.71 Encounter for disability determination (principal); S32.592D Other specified fracture of left pubis, subsequent encounter for fracture with routine healing; S32.591D Other specified fracture of right pubis, subsequent encounter for fracture with routine healing
CPT/HCPCS: 72100; 73521

== ENCOUNTER 2019-04-19 15:53 | Outpatient (CLI) | payer MEDICAID ==
--- NOTE | 2019-04-19 16:39 | ULT ---
US Pelvic Trans vag W Doppler HISTORY: Vaginal bleeding since February history of a bilateral tubal ligation. COMPARISON: None. FINDINGS: Real-time imaging of the pelvis was performed. The uterus is 5.4 x 5.7 x 9.8 cm in size. Th e endometrium is thickened at 1.5 cm. There are small nabothian cysts noted The right and left ovaries are well visualized and show small follicles. Doppler evaluation with spectral analysis: Normal flow shown to the adnexa.. IMPRESSION: Mildly thickened endometrium otherwise unremarkable exam.
== END 2019-04-19 15:54 | disposition home or self-care (01) ==
LOC: BICULT 15:53
PROVIDERS: ATTEND Nurse Practitioner Family
DX: N92.1 Excessive and frequent menstruation with irregular cycle (principal); R93.89 Abnormal findings on diagnostic imaging of other specified body structures
CPT/HCPCS: 76856

== ENCOUNTER 2022-06-06 13:26 | Outpatient (CLI) | payer OTHER | END 2022-06-06 13:27 | disposition home or self-care (01) | LOC: SCSMRI 13:26 | PROVIDERS: ATTEND Psychiatry & Neurology Neurology | DX: G35 Multiple sclerosis (principal) | CPT/HCPCS: 70553; 72156 ==

== ENCOUNTER 2023-06-15 11:20 | Outpatient (CLI) | payer OTHER | END 2023-06-15 11:21 | disposition home or self-care (01) | LOC: SCSMRI 11:20 | PROVIDERS: ATTEND Psychiatry & Neurology Neurology | DX: G35 Multiple sclerosis (principal); R90.82 White matter disease, unspecified | CPT/HCPCS: 70553; 72156; 72157 ==